=== PATIENT | male | born 1945 | race Caucasian/White ===

== ENCOUNTER 2021-09-28 11:47 | Emergency (ER) | payer MEDICARE, SELFPAY ==
[2021-09-28 11:57] VITALS: BP 182/69; PULSE 58; RESP 18; TEMP 36.8; O2SAT 97
--- NOTE | 2021-09-28 14:10 | ED.GENADUL_ITS ---
Discharge Plan Disposition Patient Disposition: HOME Condition: Stable Discharge Details Clinical Impression: Polyarthritis of upper arm Primary Care Provider: Pan Nelson ED Provider: Magnolia Lord Home Meds and New Rx's Prescriptions: New naproxen 500 mg tablet 500 mg PO BID PRN (Reason: pain) Qty: 14 0RF Rx Instructions: Take with food twice daily as needed for pain and swelling Continued metoprolol tartrate 100 MG tablet 100 mg PO BID hydrochlorothiazide 25 MG tablet 25 mg PO DAILY furosemide 20 MG tablet 20 mg PO DAILY losartan 100 MG tablet 100 mg PO DAILY aspirin 81 MG tablet,delayed release (DR/EC) 81 mg PO DAILY Discharge Instructions Instructions: Arthritis (ED) Additional Instructions: Please take the naproxen twice daily as directed. You may alternate with Tylenol. Rest ice compression elevation. Wear the splint as needed for comfort. If any worsening swelling, redness or any concerns please follow-up with orthopedics or your PCP. You may also return to the ER for any fever or worsening symptoms. Follow up with primary care provider in 3-5 days. Return to ED sooner if any worsening or concerns. Increase oral fluids. Referrals: Gus Hassan MD [ [facility]] - 2 weeks (Wrist pain, swelling) Discharge Data Discharge Date/Time-TO BE ENTERED AT DEPARTURE: 09/28/21 15:54 Medical Decision Making Due to polyarthritis symptoms and increased acute left wrist swelling and erythema labs ordered to rule out inflammatory process. X-rays ordered to rule out acute injury. Differential diagnosis includes but not limited to septic joint, gout, arthritis, fracture CBC shows no leukocytosis, monocytes 1.16 which are slightly elevated, sodium 134 chloride 97, glucose 107 uric acid 3.4 which is low, C-reactive protein elevated at 2.11. 1520: Patient is requesting to leave. He is waiting on the waiting room. I did discuss with him outlining room with his consent the results of the labs. I did relay that I do not have his imaging results yet. He is requesting to leave to go to work on Thursday. I did discuss my concerns for septic joint and discussed tricked return instructions. He verbalizes understanding. Patient reports that his swelling and pain has gotten better since he has been here after the Tylenol. After further evaluation extremity does not appear erythemic. Favoring more arthritis as diagnosis versus septic joint. [place] wrist splint ordered and I discussed use RICE procedures with patient he verbalizes understanding. I did discuss follow-up to return here if any worsening or to follow-up with orthopedics. This text was generated using [employer] system, please disregard any oddities of phrase or misspellings. Medical Records Medical records reviewed: Yes I reviewed the patient's medical records. Lab Data Lab results reviewed: Yes I reviewed the patient's lab results. Labs: Laboratory Tests Range/Units 09/28/21 09/28/21 14:29 14:29 WBC (4.4-10.8) 10^3/uL 7.67 RBC (4.36-5.78) 10^6/uL 4.81 Hgb (13.5-17.5) g/dL 15.0 Hct (40.0-50.0) % 45.0 MCV (80-95) fL 94 MCH (27.0-33.0) pg 31.2 MCHC (32.0-36.0) % 33.3 RDW (11.8-14.1) % 12.3 Plt Count (130-400) 10^3/uL 273 MPV (8.0-11.0) fL 8.9 Immature Gran % 0.3 Neutrophils % 59.1 Lymphocytes % 22.7 Monocytes % 15.1 Eosinophils % 2.1 Basophils % 0.7 Nucleated RBC % (0.0-0.3) % 0.0 Absolute Neutrophils (1.2-6.7) 10^3/uL 4.54 Absolute Lymphocytes (1.2-3.4) 10^3/uL 1.74 Absolute Monocytes (0.1-0.8) 10^3/uL 1.16 H Absolute Eosinophils (0.0-0.7) 10^3/uL 0.16 Absolute Basophils (0.0-0.2) 10^3/uL 0.05 Sodium (136-145) mmol/L 134 L Potassium (3.5-5.1) mmol/L 5.1 Chloride (98-107) mmol/L 97 L Carbon Dioxide (21.0-32.0) mmol/L 30.5 Anion Gap (3-11) mmol/L 6.5 BUN (7-18) mg/dL 15 Creatinine (0.70-1.30) mg/dL 1.2 Estimated GFR/1.73 m2 (mL/min/1.73m2) 58.86 Glucose (74-106) mg/dL 107 H Uric Acid (3.5-7.2) mg/dL 3.4 L Calcium (8.5-10.1) mg/dL 9.1 Total Bilirubin (0.2-1.0) mg/dL 0.6 AST (15-37) U/L 19 ALT (16-63) U/L 20 Alkaline Phosphatase (46-116) U/L 106 C-Reactive Protein (0.0-0.3) mg/dL 2.11 H Total Protein (6.4-8.2) g/dL 8.3 H Albumin (3.4-5.0) g/dL 3.6 HPI General Mode of arrival: ambulatory . Date/Time Provider Initiated Documentation: 09/28/21 12:12 . Limitations to Documentation: no limitations . Information obtained by: patient, RN notes reviewed and old records reviewed . HPI Narrative: 76-year-old male presents to the ER with chief complaint of left wrist swelling and warmth which began last night. He also reports a history of intermittent bilateral shoulder pain, pain with ROM, and swelling which has been ongoing. He does do woodworking and has been up and down ladder over the last couple of days. He denies any known significant injury. He denies any fever or chills. He does take Tylenol or ibuprofen as needed. He did not take any medications today. He does endorse drinking a few beers a day and does endorse red meat. Past medical history includes hypertension, cataracts, hernia repair. Related Data Home Medications Medication Instructions Recorded Confirmed furosemide 20 mg tablet 20 mg PO DAILY 06/06/15 09/28/21 hydrochlorothiazide 25 mg tablet 25 mg PO DAILY 06/06/15 09/28/21 losartan 100 mg tablet 100 mg PO DAILY 06/06/15 09/28/21 metoprolol tartrate 100 mg tablet 100 mg PO BID 06/06/15 09/28/21 aspirin 81 mg tablet,delayed 81 mg PO DAILY 06/07/15 09/28/21 release naproxen 500 mg tablet 500 mg PO BID PRN pain #14 tabs 09/28/21 Previous Rx's Medication Instructions Recorded naproxen 500 mg tablet 500 mg PO BID PRN pain #14 tabs 09/28/21 Allergies Allergy/AdvReac Type Severity Reaction Status Date / Time No Known Drug Allergies Allergy Unverified 09/28/21 12:04 General Stated Complaint: Orthopedic ROC: 3 Review of Systems All systems reviewed & are unremarkable except as noted in HPI and below Constitutional Constitutional: Reports as per HPI, Denies chills and Denies fever(s) ENT Ears, Nose, Mouth, and Throat: Denies neck pain Musculoskeletal Musculoskeletal: Reports as per HPI, Denies abnormal gait, Denies back pain, Denies myalgias, Denies deformity, Reports arthralgias, Reports joint swelling, Denies neck pain, Denies numbness, Reports radiating pain into limb and Reports stiffness Neurologic Neurologic: Denies abnormal gait and Denies numbness PFSH All Active Problems (Updated 09/28/21 @ 15:27 by Magnolia Lord NP) Polyarthritis of upper arm (Acute) Social History Smoking/Tobacco Use Status: Never Smoking risk assessment performed?: Yes Alcohol Intake: current Alcohol Intake frequency: 3 or more drinks per day Alcohol type: beer Drug use: Never Do you feel safe at home: Yes Do you feel safe in your relationship?: Yes Exam Extrem General: normal to inspection Left upper extremity: wrist (Tenderness with Abduction to bilateral Shoulder ROM approx 45 degrees) Details: tenderness, swelling, abnormal ROM Details: pain with active ROM Details: with extension and with flexion, warmth, normal vascular exam, radial pulse present and ulnar pulse present; no ecchymosis, no crepitus, no foreign bodies and no deformity Course Vital Signs Vital signs: Vital Signs Temperature 36.8 C 09/28/21 11:57 Pulse 58 L 09/28/21 11:57 Respiratory Rate 18 09/28/21 11:57 Blood Pressure 182/69 H 09/28/21 11:57 Pulse Oximetry 97 09/28/21 11:57 Temperature 36.8 C 09/28/21 11:57 Temperature Source Skin 09/28/21 11:57 Pulse 58 L 09/28/21 11:57 Respiratory Rate 18 09/28/21 11:57 Respiratory Effort 09/28/21 13:29 Blood Pressure 182/69 H 09/28/21 11:57 Blood Pressure Position Sitting 09/28/21 11:57 Pulse Oximetry 97 09/28/21 11:57 Oxygen Delivery Method Room Air 09/28/21 11:57 Oxygen Flow Rate 0 09/28/21 11:57 Pain Level 5 09/28/21 11:57 PAWSS Have you Been Recently Intoxicated or Drunk Within the Last 30 days?: No Have you Ever Experienced Previous Episodes of Alcohol Withdrawal?: No Have you ever Experienced Withdrawal Seizures?: No Have you ever Experienced Delirium Tremens(DT)s?: No Have you ever undergone Alcohol Rehabilitation Treatment (i.e, inpt ot outpatient treatment programs)?: No Have you ever Experienced Blackouts?: No Have you ever Combined Alcohol with other Downers within the last 90 days?: No Have you ever Combined Alcohol with any other Substance of Abuse during the last 90 days?: No Positive Blood Alcohol level on Presentation? [PCS.BAL]: No Evidence of Increased Autonomic Activity (i.e. HR>120, tremor, sweating, agitation, nausea)?: No Result: 0
[2021-09-28 14:41] LABS: Abs Immature Grans 0.02 10^3/uL (0.0-0.06); Absolute Basophil Count 0.05 10^3/uL (0.0-0.2); Absolute Eosinophil Count 0.16 10^3/uL (0.0-0.7); Absolute Lymphocyte Count 1.74 10^3/uL (1.2-3.4); Absolute Monocyte Count 1.16 10^3/uL (0.1-0.8); Absolute Neutrophil Count 4.54 10^3/uL (1.2-6.7); Basophils % 0.7; Eosinophils % 2.1; Immature Grans % 0.3; Lymphocytes % 22.7; MCH 31.2 pg (27.0-33.0); MCHC 33.3 % (32.0-36.0); MCV 94 fL (80-95); MPV 8.9 fL (8.0-11.0); Monocytes % 15.1; Neutrophils % 59.1; Platelet Count 273 10^3/uL (130-400); RBC 4.81 10^6/uL (4.36-5.78); RDW 12.3 % (11.8-14.1); RDW-SD 42.9 fL; WBC 7.67 10^3/uL (4.4-10.8)
--- NOTE | 2021-09-28 14:47 | DI.RAD_ITS ---
Exam(s) XR SHOULDER LT COMPLETE 2+V EXAM: XR SHOULDER LT COMPLETE 2+V CLINICAL HISTORY: PAin, Decreased ROM. TECHNIQUE: 2D digital imaging was performed. Three views. COMPARISON: CR LEFT SHOULDER COMPLETE from 07/15/2017 FINDINGS: BONES: No acute fracture is present. No bony destructive lesion is seen. JOINTS: No dislocation present. There is prominent spurring at the AC joint. There is mild spurring at the inferior glenohumeral joint. The glenohumeral joint space is well maintained. SOFT TISSUE: Normal. The previously noted calcifications adjacent to the greater tuberosity are no l onger seen. IMPRESSION: Degenerative changes greatest of the acromial humeral joint. DATA REPOSITORY: RADIATION DOSE DELIVERED:
--- NOTE | 2021-09-28 14:49 | DI.RAD_ITS ---
Exam(s) XR WRIST LT COMPLETE EXAM: XR WRIST LT COMPLETE CLINICAL HISTORY: Swollen joint, pain. TECHNIQUE: 2D digital imaging was performed. Three views. COMPARISON: CR,XR XR SHOULDER LT COMPLETE 2+V from 09/28/2021 FINDINGS: BONES: No acute fracture is present. No bony destructive lesion is seen. JOINTS: The carpal bones are normally aligned. Mild degenerative changes. SOFT TISSUE: Vascular calcifications. No foreign body. IMPRESSION: Unremarkable radiographs of the left wrist. DATA REPOSITORY: RADIATION DOSE DELIVERED:
[2021-09-28 14:52] LABS: ALT 20 U/L (16-63); AST 19 U/L (15-37); Albumin 3.6 g/dL (3.4-5.0); Alkaline Phosphatase 106 U/L (46-116); Anion Gap 6.5 mmol/L (3-11); BUN 15 mg/dL (7-18); Bilirubin, Total 0.6 mg/dL (0.2-1.0); C-Reactive Protein 2.11 mg/dL (0.0-0.3); CO2 30.5 mmol/L (21.0-32.0); CREATININE 1.2 mg/dL (0.70-1.30); Calcium 9.1 mg/dL (8.5-10.1); Chloride 97 mmol/L (98-107); Estimated GFR 58.86 (mL/min/1.73m2); Glucose 107 mg/dL (74-106); Potassium 5.1 mmol/L (3.5-5.1); Sodium 134 mmol/L (136-145); Total Protein 8.3 g/dL (6.4-8.2); Uric Acid 3.4 mg/dL (3.5-7.2)
[2021-09-28] MEDS: Acetaminophen 500 MG TAB PO (14:53)
--- NOTE | 2021-09-28 15:43 | DI.VRAD_ITS ---
PROCEDURE INFORMATION: Exam: XR Left Wrist Exam date and time: 09/28/2021 2:47 PM Age: 76 years old Clinical indication: Pain; Wrist; Left TECHNIQUE: Imaging protocol: Radiologic exam of the Left wrist. Views: 3 or more views. COMPARISON: No relevant prior studies available. FINDINGS: Bones/joints: No evidence for fracture or dislocation. Degenerative changes of the 1st metacarpal phalangeal joint. No fracture or dislocation. Soft tissues: Unremarkable. Vasculature: Atherosclerotic disease. IMPRESSION: No evidence for acute bony injury. If clinical symptoms persist recommend followup film in 7-10 days. Dictated and Authenticated by: Colette Kennedy MD. Ordering:JEZ Merida MD
--- NOTE | 2021-09-28 15:48 | DI.VRAD_ITS ---
PROCEDURE INFORMATION: Exam: XR Left Shoulder Exam date and time: 09/28/2021 2:43 PM Age: 76 years old Clinical indication: Pain; Shoulder; Left TECHNIQUE: Imaging protocol: Radiologic exam of the Left shoulder. Views: 2 or more views. COMPARISON: CR LEFT SHOULDER COMPLETE 07/15/2017 11:17 FINDINGS: Bones/joints: Degenerative changes of the acromioclavicular joint and glenohumeral joint. No fracture or dislocation. Soft tissues: Unremarkable. IMPRESSION: No acute bony findings. If clinical symptoms persist recommend followup film in 7-10 days. Dictated and Authenticated by: Colette Kennedy MD. Ordering:JEZ Merida MD
== END 2021-09-28 15:54 | disposition home or self-care (01) ==
PROVIDERS: Emergency Provider Registered Nurse Emergency; PCP Family Medicine
DX: M19.012 Primary osteoarthritis, left shoulder (principal); M25.532 Pain in left wrist
CPT/HCPCS: 29125; 36415; 80053; 99284; 73030; 73110; 84550; 85025; 86140; 99283

== ENCOUNTER → 2023-01-08 03:47 | Outpatient (CLI) | payer MEDICARE, SELFPAY ==
--- NOTE | 2023-01-08 | DI.US_ITS ---
Exam(s) US AAA SCREENING EXAM: US AAA SCREENING CLINICAL HISTORY: SCREENING FOR AAA COMPARISON: No exams were available for comparison FINDINGS: ABDOMINAL AORTA: There is atherosclerotic appearance of the abdominal aorta. However, there is no ev idence of abdominal aortic aneurysm. Maximum diameter of the abdominal aorta is 2.1 cm. COMMON ILIAC ARTERIES: Both common iliac arteries exhibit upper normal diameters without obvious aneu rysmal dilatation. IMPRESSION: No evidence of abdominal aortic aneurysm. However, the abdominal aorta does appear atherosclerotic. No aneurysms in the visualized common iliac arteries evident. DATA REPOSITORY:
--- NOTE | 2023-01-08 | DI.RAD_ITS ---
Exam(s) XR CHEST 2V PA LATERAL EXAM: XR CHEST 2V PA LATERAL CLINICAL HISTORY: DYSPNEA, HYPERTENSION. TECHNIQUE: 2D digital imaging was performed. COMPARISON: CR CHEST 2 VIEWS PA,LAT from 06/30/2017 FINDINGS: 2 views: Heart size is normal. The mediastinum is not widened. Lungs are clear. No infiltrates nor pleural effusions. IMPRESSION: No acute pulmonary findings. DATA REPOSITORY: RADIATION DOSE DELIVERED:
== END ==
PROVIDERS: PCP Family Medicine; Visit Provider Internal Medicine
DX: Z13.6 Encounter for screening for cardiovascular disorders (principal); I10 Essential (primary) hypertension; E78.5 Hyperlipidemia, unspecified; G47.33 Obstructive sleep apnea (adult) (pediatric); M06.4 Inflammatory polyarthropathy
CPT/HCPCS: 76706; 71046